=== PATIENT | female | born 1990 | race Caucasian/White ===

== ENCOUNTER 2017-08-14 17:11 | Emergency (ER) | payer MEDICAID, OTHER ==
[2017-08-14 17:20] VITALS: BP 122/76; PULSE 102; TEMP 97.9; O2SAT 98
[2017-08-14 17:39] VITALS: RESP 18
--- NOTE | 2017-08-14 18:30 | C.PDOC ---
History Of Present Illness 26yo female, with EGA of 7months, presents to ED requesting repeat CBC and HIV testing. Patient states she had an elective CBC done 2 days ago, which resulted with normal white count and normal distribution. She reports concern because she does not understand what "ly" stands for and thinks it may be related to low lymphocyte count. She states she has been having normal care and states over the past few months, she has had STD testing as well. Patient also has had many STD evaluations in the past as scheduled and electively. She has a history of debilitating anxiety disorder as well as PTSD. Time Seen by Provider: 08/14/17 18:07 Chief Complaint (Nursing): Shortness Of Breath History Per: Patient History/Exam Limitations: no limitations Past Medical History Reviewed: Historical Data, Nursing Documentation, Vital Signs Vital Signs: Last Vital Signs Temp 97.9 F 08/14/17 17:15 Pulse 102 H 08/14/17 17:15 Resp 18 08/14/17 17:31 BP 122/76 08/14/17 17:15 Pulse Ox 98 08/14/17 18:30 - Medical History PMH: Anxiety, Post Traumatic Stress Disorder Surgical History: No Surg Hx Family History: States: Unknown Family Hx - Social History Hx Alcohol Use: No Hx Substance Use: No - Immunization History Hx Tetanus Toxoid Vaccination: No Hx Influenza Vaccination: No Hx Pneumococcal Vaccination: No Review Of Systems Except As Marked, All Systems Reviewed And Found Negative. Physical Exam - Physical Exam Appears: Non-toxic, No Acute Distress Skin: Normal Color, Warm, Dry Head: Atraumatic Eye(s): bilateral: Normal Inspection Neck: Normal ROM, Supple Chest: Symmetrical Cardiovascular: Rhythm Regular Respiratory: Normal Breath Sounds Gastrointestinal/Abdominal: Normal Exam, Soft, No Tenderness Extremity: Normal ROM Neurological/Psych: Oriented x3 Gait: Steady ED Course And Treatment O2 Sat by Pulse Oximetry: 98 (RA) Pulse Ox Interpretation: Normal Medical Decision Making Medical Decision Making: pt with ptsd/anxiety, normal @ 7 months, panic anxiety 2 days ago and NORMAL CBC done @ [facility] (outpatient) with normal differential requests repeat CBC and repeat HIV testing (normal in care) extensively educated with poor insight Decline to repeat labs which were normal 3 days ago, pt has f/u w OBGYN in 2 days no related issues, normal sat and no sob now nor for the past 2 days. Disposition Doctor Will See Patient In The: Office Counseled Patient/Family Regarding: Studies Performed, Diagnosis - Disposition Referrals: [facility] [Outside] [facility] [Outside] Disposition: HOME/ ROUTINE Disposition Time: 18:30 Condition: GOOD Additional Instructions: continue your normal care with your OBGYN your CBC was NORMAL as interpreted here today elective STD testing must be done as outpatient and NOT in the ED Return to ED for any significant changes Instructions: Anxiety, Adult (DC), Symptoms Forms: [employer] (Chadian) - Clinical Impression Clinical Impression: Anxiety about health - Scribe Statement The provider has reviewed the documentation as recorded by the Yared Liz Provider Attestation: All medical record entries made by the Yared were at my direction and personally dictated by me. I have reviewed the chart and agree that the record accurately reflects my personal performance of the history, physical exam, medical decision making, and the department course for this patient. I have also personally directed, reviewed, and agree with the discharge instructions and disposition.
== END 2017-08-14 18:37 | disposition home or self-care (01) ==
LOC: C.ER 17:11
DX: F41.9 Anxiety disorder, unspecified (principal)